=== PATIENT | female | born 2000 | race Caucasian/White ===

== ENCOUNTER → 2021-09-21 | Day surgery (SDC) | payer OTHER ==
[~2021-09-21] VITALS: Ht 157.5 cm; Wt 86.2 kg
[~2021-09-21] MED LIST: ADMELOG100 UNIT/1 SC
[2021-09-21 09:35] LABS: HCG (URINE) SCREEN NEGATIVE (NEGATIVE)
[2021-09-21 10:01] LABS: BASOPHIL 1.2 % (0-2); EOSINOPHIL 6.3 % (0-5); HCT 37.1 % (37.0-47.0); HGB 13.4 g/dl (12.5-16.0); LYMPHOCYTE 24.2 % (15-48); MCH 30.5 pg (25.0-31.0); MCHC 36.1 g/dL (32.0-36.0); MCV 84.3 fL (78.0-100.0); MONOCYTE 7.7 % (0-12); MPV 11.2 fL (6.0-9.5); NEUTROPHIL 60.1 % (41-80); NRBC 0; PLT 258 K/uL (150-400); RDW 12.5 % (11.5-14.0); WBC 6.5 K/uL (4.0-10.5)
[2021-09-21 10:08] LABS: BUN/CREAT RATIO (CALC) 19.4 RATIO; CREATININE 0.62 mg/dL (0.51-0.95); POTASSIUM 4.1 mmol/L (3.5-5.1)
== END | disposition home or self-care (01) ==
LOC: FAS 09:09
PROVIDERS: Oral & Maxillofacial Surgery
DX: K01.1 Impacted teeth (principal); E10.9 Type 1 diabetes mellitus without complications; E66.9 Obesity, unspecified; F17.210 Nicotine dependence, cigarettes, uncomplicated; Z68.34 Body mass index [BMI] 34.0-34.9, adult; Z88.2 Allergy status to sulfonamides
CPT/HCPCS: D7230 ×4; 36415; 80048; 84703; 85025; J1170; J2250; J2405; J2704; J3010; J7120